=== PATIENT | female | born 1955 | race Caucasian/White ===

== ENCOUNTER 2019-03-15 11:54 | Outpatient (CLI) | payer MEDICARE, MEDICAID ==
--- NOTE | 2019-03-15 13:00 | ULT ---
BILATERAL CAROTID DUPLEX ULTRASOUND: HISTORY: Carotid bruit TECHNIQUE: Grayscale, color-flow and spectral Doppler ultrasound imaging of the extracranial carotid artery syst ems was performed bilaterally. FINDINGS: Severe plaque formation. The peak systolic velocity in the right ICA measures 537 cm/s. The peak systolic velocity in the left ICA measures 431 cm/s. Vertebral flow: antegrade, bilaterally. IMPRESSION: Severe (>70%) stenosis of Both ICAs. Recommend CTA neck for further evaluation.
== END 2019-03-15 11:55 | disposition home or self-care (01) ==
LOC: ULT 11:54
PROVIDERS: ATTEND Nurse Practitioner Adult Health
DX: R09.89 Other specified symptoms and signs involving the circulatory and respiratory systems (principal); R01.1 Cardiac murmur, unspecified; I34.0 Nonrheumatic mitral (valve) insufficiency; I65.23 Occlusion and stenosis of bilateral carotid arteries
CPT/HCPCS: 93306; 93880

== ENCOUNTER 2019-04-05 07:30 | Outpatient (CLI) | payer MEDICARE, MEDICAID ==
--- NOTE | 2019-04-05 09:34 | CT ---
CT ANGIOGRAM OF NECK: Date: 04/05/19 HISTORY: Evaluate for carotid occlusion/stenosis. TECHNIQUE: CT angiogram of the neck is performed in the axial plane. Three-dimensional reformatted images are garces bmitted for interpretation. FINDINGS: Visualized brain parenchyma and orbits are unremarkable. Adequate aeration of the visualized paranasal sinuses and mastoid air cells. Limited evaluation of the oral cavity due to dental amalgam artifact. No obvious masses. Midline [place] of the tongue is preserved. Epiglottis has a normal caliber. Preepiglottic fat is preserved. Symmetric attenuation of the parotid and submandibular glands. Unremarkable thyroid gland. No evidence of lymphadenopathy by size criteria. Symmetric attenuation of the sternocleidomastoid muscles. Cervical spine vertebral body height is maintained. There is no fracture. Moderate degenerative disc disease at C5-C6 and C6-C7. Varying degrees of central canal stenosis and neural foraminal narrowing on the basis of degenerative change. Visualized soft tissue neck structures and upper mediastinum are unremarkable. Visualized lung apices demonstrate minimal ground-glass opacification. CT ANGIOGRAM: Aortic arch has an overall normal caliber. There is atherosclerosis with calcified and noncalcified p laque. Right Carotid: There is high grade stenosis involving the origin of the right carotid artery. The in nominate artery, common carotid artery have appropriate enhancement and luminal diameter. There is an ulcerative plaque at the level of the distal common carotid artery/carotid bifurcation, measuring 0. 2 x 0.4 cm. There is short segment high grade stenosis involving the proximal right internal carotid artery. High grade stenosis is based upon NASCET criteria (approximately 70% stenosis). The remainder of the right internal carotid artery has appropriate enhancement and luminal diameter. Left Carotid: The origin of the left carotid artery has appropriate enhancement and luminal diameter . Left common carotid artery has appropriate enhancement and luminal diameter. There is long segment mild stenosis due to a combination of calcified and noncalcified plaque at the level of the mid commo n carotid artery. The carotid bifurcation demonstrates a small ulcerative plaque measuring 0.2 cm. At the level of the proximal internal carotid artery, there is a long segment focus of severe stenosis, based upon NASCET criteria. There is approximately 70% stenosis. The remainder of the left internal carotid artery has appropriate enhancement and luminal diameter. The proximal right vertebral artery has a short segment of absence of contrast enhancement suggesting stenosis. Additionally, the distal right vertebral artery has a short segment of decreased enhanceme nt and luminal diameter suggesting high grade stenosis. The left vertebral artery is patent throughou t its course in the neck and is dominant. Bilateral subclavian arteries are unremarkable. IMPRESSION: 1. Atherosclerosis involving both carotid bifurcations with ulcerative plaques. 2. Short segment severe stenosis involving both internal carotid arteries, based upon NASCET criteri a. POS: OFF
== END 2019-04-05 07:31 | disposition home or self-care (01) ==
LOC: CT 07:30
PROVIDERS: ATTEND Thoracic Surgery (Cardiothoracic Vascular Surgery)
DX: I65.23 Occlusion and stenosis of bilateral carotid arteries (principal)
CPT/HCPCS: 70498